=== PATIENT | female | born 1985 | race Caucasian/White ===

== ENCOUNTER 2021-06-25 14:52 | Inpatient (IN) | payer BC ==
[2021-06-25] MEDS ORDERED: Terbutaline 1 MG/ML SDV SUBCUT PRN (15:17)
[2021-06-25] MEDS ORDERED: Water For Irrigation,Sterile 1,000 ML Container IRR PRN (15:18)
[2021-06-25] MEDS ORDERED: Sodium Chloride 0.9% 2.5 ML Syringe FLUSH PRN (15:18)
[2021-06-25] MEDS ORDERED: Methylergonovine 0.2 MG/1 ML Amp IM PRN (15:18)
[2021-06-25] MEDS ORDERED: Lidocaine 1% 50 ML MDV INJECT PRN (15:18)
[2021-06-25] MEDS ORDERED: Sodium Chloride 0.9% 10 ML Syringe FLUSH PRN (15:18)
[2021-06-25] MEDS ORDERED: Tranexamic Acid 1,000 MG in Sodium Chloride 0.9% 100 ML IV PRN (15:18)
[2021-06-25] MEDS ORDERED: Carboprost Tromethamine 250 MCG/1 ML Amp IM PRN (15:18)
[2021-06-25] MEDS ORDERED: Misoprostol 200 MCG Tab PO PRN (15:18)
[2021-06-25] MEDS ORDERED: Sodium Chloride 0.9% 20 ML SDV IV PRN (15:18)
[2021-06-25] MEDS ORDERED: Oxytocin/0.9 % Sodium Chloride 30 UNIT/500 ML BAG IV SCH ×2 (15:30)
[2021-06-25] MEDS: Misoprostol 25 MCG (1/4 of 100 MCG) Tab VAG PRN ×2 (15:45→20:08)
[2021-06-26] MEDS: Butorphanol 1 MG/ML SDV IVPUSH PRN ×2 (00:33→01:41)
[2021-06-26] MEDS: Lactated Ringers 1,000 ML IV SCH ×4 (01:38→15:55)
[2021-06-26] MEDS ORDERED: Ropivacaine HCl/PF 100 ML ONE (02:11)
[2021-06-26] MEDS ORDERED: ePHEDrine 50 MG/ML SDV IVPUSH PRN (02:27)
[2021-06-26] MEDS: Ropivacaine HCl/PF 200 MG in Premix Bag 1 BAG EPIDUR SCH ×2 (10:52→18:57)
[2021-06-26] MEDS: Ondansetron 4 MG/2 ML SDV IVPUSH PRN ×2 (11:19→19:29)
[2021-06-26] MEDS ORDERED: Citric Acid/Sodium Citrate Solution 30 ML Cup PO ONE (22:39)
[2021-06-26] MEDS ORDERED: Azithromycin 500 MG in Sodium Chloride 0.9% 250 ML IV ONE (22:39)
[2021-06-26] MEDS ORDERED: Clindamycin Phosphate in D5W 900 MG in Premix Bag 1 BAG IV ONE ×2 (22:39)
[2021-06-26] MEDS ORDERED: Oxytocin/0.9 % Sodium Chloride 30 UNIT/500 ML BAG IV SCH (22:45)
[2021-06-26] MEDS ORDERED: Ondansetron 4 MG/2 ML SDV ONE (22:46)
[2021-06-26] MEDS ORDERED: ceFAZolin 1 GM Vial ONE (22:46)
[2021-06-26] MEDS ORDERED: Dexmedetomidine 200 MCG/2 ML SDV ONE (22:46)
[2021-06-26] MEDS ORDERED: Lidocaine 2% with EPINEPHrine 1:200,000 20 ML SDV ONE ×2 (22:46→23:32)
[2021-06-26] MEDS ORDERED: Oxytocin 10 Units/1 ML SDV ONE (22:46)
[2021-06-26] MEDS ORDERED: Water For Injection, Sterile 20 ML ONE (22:46)
[2021-06-26] MEDS ORDERED: Azithromycin 500 MG Vial ONE (23:18)
[2021-06-26] MEDS ORDERED: Sodium Chloride 0.9% 250 ML ONE (23:19)
[2021-06-26] MEDS ORDERED: Morphine PF 10 MG/10 ML SDV ONE (23:30)
[2021-06-26] MEDS ORDERED: Dexamethasone 4 MG/ML 5 ML MDV ONE (23:33)
[2021-06-27] MEDS ORDERED: Bupivacaine 0.25% 30 ML SDV ONE (00:17)
[2021-06-27] MEDS ORDERED: Oxytocin 10 Units/1 ML SDV IM PRN (00:21)
[2021-06-27] MEDS ORDERED: Ondansetron 4 MG/2 ML SDV IVPUSH PRN (00:21)
[2021-06-27] MEDS ORDERED: diphenhydrAMINE 50 MG/ML SDV IVPUSH PRN ×2 (00:21→00:51)
[2021-06-27] MEDS ORDERED: Aluminum Hydroxide/Magnesium Hydroxide/Simethicone XS Susp 30 ML Cup PO PRN (00:21)
[2021-06-27] MEDS ORDERED: Lanolin 100% Cream 7 GM Tube TOP PRN (00:21)
[2021-06-27] MEDS ORDERED: Bisacodyl 10 MG Supp RECTAL PRN (00:21)
[2021-06-27] MEDS ORDERED: Acetaminophen/oxyCODONE 325-5 MG Tab PO PRN (00:21)
[2021-06-27] MEDS ORDERED: Lactated Ringers 1,000 ML IV SCH (00:30)
[2021-06-27] MEDS: Ketorolac 30 MG/ML SDV IVPUSH SCH ×4 (00:59→18:17)
[2021-06-27] MEDS: Lactated Ringers 1,000 ML IV SCH (03:39)
[2021-06-27] MEDS: Simethicone 80 MG Tab.Chew PO SCH ×3 (06:01→18:18)
[2021-06-27] MEDS: Docusate Sodium 100 MG Cap PO SCH ×2 (09:19→20:49)
[2021-06-27] MEDS: Acetaminophen/oxyCODONE 325-5 MG Tab PO PRN (20:48)
[2021-06-28] MEDS: Ketorolac 30 MG/ML SDV IVPUSH SCH (01:18)
[2021-06-28] MEDS: Simethicone 80 MG Tab.Chew PO SCH ×3 (01:18→13:24)
[2021-06-28] MEDS: Acetaminophen/oxyCODONE 325-5 MG Tab PO PRN ×2 (06:05→15:25)
[2021-06-28] MEDS ORDERED: Ibuprofen 800 MG Tab PO PRN (06:30)
[2021-06-28] MEDS: Docusate Sodium 100 MG Cap PO SCH (08:42)
== END 2021-06-28 15:29 | disposition home or self-care (01) | DRG 540 ==
LOC: MW.OBCHECK 14:52 → MW.OB 15:33 → OBSVTOIN 06-26 23:36 → MW.OB 06-27 02:28
PROVIDERS: ADMIT Obstetrics & Gynecology; ATTEND Obstetrics & Gynecology
PROC: 10D00Z1 Extraction of Products of Conception, Low, Open Approach (ICD-10-PCS; principal; 2021-06-26)
DX: O62.2 Other uterine inertia (principal); O09.813 Supervision of pregnancy resulting from assisted reproductive technology, third trimester; Z3A.39 39 weeks gestation of pregnancy; Z37.0 Single live birth; O76 Abnormality in fetal heart rate and rhythm complicating labor and delivery; Z20.822 Contact with and (suspected) exposure to COVID-19
CPT/HCPCS: 01967; 36415; 51702; 59025; 82803; 85014; 85018; 85027; 86592; 86850; 86900; 86901; A9270-GY; J0456; J0595; J0690; J1100; J1200; J1885; J2274; J2370; J2405; J2590; J2795; J3490; J7120; U0002